=== PATIENT | female | born 1990 | race Caucasian/White ===

== ENCOUNTER 2019-12-17 14:57 | Emergency (ER) | payer MEDICAID, OTHER ==
[~2019-12-17] VITALS: Ht 152.4 cm; Wt 68.9 kg
[2019-12-17 14:59] VITALS: BP 121/80
[2019-12-17] MEDS ORDERED: KETOROLAC 30 MG/ML VIAL IM ONE (16:00)
[2019-12-17 16:37] VITALS: BP 121/80
== END 2019-12-17 16:38 | disposition home or self-care (01) ==
LOC: MED 14:57
DX: M79.644 Pain in right finger(s) (principal); Z90.49 Acquired absence of other specified parts of digestive tract; V89.2XXA Person injured in unspecified motor-vehicle accident, traffic, initial encounter; Y93.89 Activity, other specified; Y92.89 Other specified places as the place of occurrence of the external cause; Y99.8 Other external cause status
CPT/HCPCS: 29130; 73130; 96372; 99283; J1885

== ENCOUNTER 2020-04-09 21:44 | Emergency (ER) | payer SELFPAY ==
[~2020-04-09] VITALS: Ht 152.4 cm; Wt 70.3 kg
[2020-04-09 21:47] VITALS: BP 116/73
[2020-04-09] MEDS ORDERED: KETOROLAC 60 MG/2 ML VIAL IM ONE (22:30)
[2020-04-09] MEDS ORDERED: IBUP-2213 PO (22:33)
[2020-04-09] MEDS ORDERED: ACET-8386 PO (22:33)
[2020-04-09 22:43] VITALS: BP 116/73
== END 2020-04-09 22:43 | disposition home or self-care (01) ==
LOC: MED 21:44
DX: R51.9 Headache, unspecified (principal); F12.10 Cannabis abuse, uncomplicated; Z90.49 Acquired absence of other specified parts of digestive tract; Z79.899 Other long term (current) drug therapy; V98.8XXA Other specified transport accidents, initial encounter; Y93.89 Activity, other specified; Y92.89 Other specified places as the place of occurrence of the external cause; Y99.8 Other external cause status
CPT/HCPCS: 96372; 99283; J1885

== ENCOUNTER 2021-04-21 09:35 | Emergency (ER) | payer SELFPAY ==
[~2021-04-21] VITALS: Ht 152.4 cm; Wt 72.1 kg
[~2021-04-21 09:35] MED LIST: ACET-8386 PO; IBUP-2213 PO
[2021-04-21 09:46] VITALS: BP 154/86
--- NOTE | 2021-04-21 09:51 | NUR ---
30/F BIB SELF WITH C/O LEFT SIDED FACIAL PAIN AND SWELLING. STATES SHE HAS A BROKEN TOOTH AND INFECTION CAUSING THE SWELLING. REPORTS BEING SEEN FOR SYMPTOMS AND GETTING RX OF NAPROSYN AND AMOXICILLIN BUT STATES NO RELIEF. DENIES FEVERS, CHILLS.
[2021-04-21] MEDS ORDERED: oxyCODONE/APAP 5/325 MG 1 TAB TAB PO ONE (10:20)
[2021-04-21] MEDS ORDERED: PHENOL/MENTHOL 177 ML BTL MM ONE (10:20)
[2021-04-21] MEDS ORDERED: AMOXIL/CLAVULANATE 875/125 MG 1 TAB PO ONE (10:20)
--- NOTE | 2021-04-21 10:20 | NUR ---
DR. ERNANDEZ EVALUATING PATIENT AT BEDSIDE.
[2021-04-21] MEDS ORDERED: ACET-5629 PO (10:23)
[2021-04-21] MEDS ORDERED: AMOX1TAB8 PO (10:23)
[2021-04-21] MEDS ORDERED: IBUP-2213 PO (10:23)
[2021-04-21] MEDS ORDERED: [UNRECOGNIZED DRUG - CODE] TP (10:23)
--- NOTE | 2021-04-21 10:27 | NUR ---
MEDICATED PATIENT PER ORDERS, PATIENT TOLERATED WELL. WILL CONTINUE TO MONITOR.
[2021-04-21 10:50] VITALS: BP 154/86
--- NOTE | 2021-04-21 10:50 | NUR ---
Patient discharged with v/s stable. Written and verbal after care instructions ABOUT DENTAL ABSCESS given and explained. Patient alert, oriented and verbalized understanding of instructions. Ambulatory with steady gait. All questions addressed prior to discharge. ID band removed. Patient advised to follow up with PMD. Rx of PERCOCET 5-325 TAB, AMOX-CLAV 875-125MG TAB, CHLOROHEXIDINE GLUCONATE, AND IBUPROFEN given.
--- NOTE | 2021-04-21 10:51 | NUR ---
The patient's care was reviewed and supervised by Jagruti Saez RN.
== END 2021-04-21 10:50 | disposition home or self-care (01) ==
LOC: MED 09:35
DX: K04.7 Periapical abscess without sinus (principal); K02.9 Dental caries, unspecified; F12.10 Cannabis abuse, uncomplicated; Z79.899 Other long term (current) drug therapy; Z79.891 Long term (current) use of opiate analgesic; Z79.1 Long term (current) use of non-steroidal anti-inflammatories (NSAID); Z79.2 Long term (current) use of antibiotics
CPT/HCPCS: 99283

== ENCOUNTER 2021-04-24 14:32 | Emergency (ER) | payer SELFPAY ==
[~2021-04-24] VITALS: Ht 152.4 cm; Wt 72.6 kg
[~2021-04-24 14:32] MED LIST changes: +ACET-5629 PO; +AMOX1TAB8 PO; +[UNRECOGNIZED DRUG - CODE] TP
[2021-04-24 15:00] VITALS: BP 115/71
--- NOTE | 2021-04-24 15:08 | NUR ---
PT AMB TO BED 12.
--- NOTE | 2021-04-24 15:10 | NUR ---
Patient being evaluated by DR CONTRERAS at bedside.
[2021-04-24] MEDS ORDERED: NAPR-1704 PO (15:16)
[2021-04-24] MEDS ORDERED: CLIN300C2 PO (15:16)
[2021-04-24 15:26] VITALS: BP 115/71
--- NOTE | 2021-04-24 15:26 | NUR ---
NO NURSING CARE RENDERED. Patient discharged with v/s stable. Written and verbal after care instructions given and explained. Patient alert, oriented and verbalized understanding of instructions. Ambulatory with steady gait. All questions addressed prior to discharge. ID band removed. Patient advised to follow up with PMD. Rx of CLEOCIN HCL, NAPROSYN given. Patient educated on indication of medication including possible reaction and side effects. Opportunity to ask questions provided and answered.
== END 2021-04-24 15:26 | disposition home or self-care (01) ==
LOC: MED 14:32
DX: K02.9 Dental caries, unspecified (principal); K03.2 Erosion of teeth
CPT/HCPCS: 99283